=== PATIENT | male | born 1970 | race Caucasian/White ===

== ENCOUNTER 2018-06-25 17:13 | Emergency (ER) | payer OTHER, BC ==
[2018-06-25] MEDS ORDERED: HYDROCODONE/ACETAMINOPHEN 5-325 MG TABLET PO ONE (18:13)
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
[2018-06-25 19:12] LABS: ANION GAP 9 (5-19); BLOOD UREA NITROGEN 16 mg/dL (7-20); CALCIUM 9.7 mg/dL (8.4-10.2); CARBON DIOXIDE 26 mmol/L (22-30); CHLORIDE 103 mmol/L (98-107); GLUCOSE 90 mg/dL (75-110); POTASSIUM 4.1 mmol/L (3.6-5.0); SODIUM 138.4 mmol/L (137-145)
[2018-06-25 19:34] LABS: APPEARANCE,URINE CLEAR; BILIRUBIN,URINE NEGATIVE (NEGATIVE); COLOR,URINE YELLOW; GLUCOSE, URINE NEGATIVE (NEGATIVE); KETONES,URINE TRACE mg/dL (NEGATIVE); LEUKOCYTE ESTERASE,URINE NEGATIVE (NEGATIVE); NITRITE,URINE NEGATIVE (NEGATIVE); PROTEIN,URINE NEGATIVE (NEGATIVE); URINE SPECIFIC GRAVITY 1.017; UROBILINOGEN,URINE NEGATIVE mg/dL (<2.0)
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
--- NOTE | 2018-06-25 20:24 | RADIOLOGY REPORT (SQ) ---
2 VIEWS OF THE THORACIC SPINE HISTORY: Lower back pain. COMPARISON: None. FINDINGS: No acute compression fracture is seen. There is normal alignment without subluxation. The disc spaces are preserved. IMPRESSION: No acute compression fracture of the thoracic spine.
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
[2018-06-25 21:17] VITALS: BP 140/99
== END 2018-06-25 21:36 | disposition home or self-care (01) ==
LOC: ER 17:13
DX: S16.1XXA Strain of muscle, fascia and tendon at neck level, initial encounter (principal); S60.222A Contusion of left hand, initial encounter; S60.221A Contusion of right hand, initial encounter; M54.2 Cervicalgia; M79.641 Pain in right hand; M79.642 Pain in left hand; M25.531 Pain in right wrist; M25.532 Pain in left wrist; R10.819 Abdominal tenderness, unspecified site; R10.9 Unspecified abdominal pain; L53.9 Erythematous condition, unspecified; V43.52XA Car driver injured in collision with other type car in traffic accident, initial encounter; Z88.0 Allergy status to penicillin; Z91.038 Other insect allergy status; R42 Dizziness and giddiness; M54.89 Other dorsalgia
CPT/HCPCS: 36415; 72070; 72125; 74177; 76705; 80048; 81001; 99284